=== PATIENT | female | born 1965 | race American Indian/Alaskan Native ===

== ENCOUNTER 2019-01-20 09:38 | Emergency (ER) | payer MEDICARE ==
[2019-01-20 09:58] VITALS: BP 114/78
[2019-01-20 10:52] LABS: Basophils % (Auto) 0.3 % (0.0-1.8); Eosinophils # (Auto) 0.1 K/mm3 (0.0-0.4); Hematocrit 42.2 % (30.3-42.9); Hemoglobin 13.6 gm/dl (10.1-14.3); Mean Corpuscular HGB Conc 32 % (30-34); Mean Corpuscular Volume 91 fl (79-97); Monocytes # (Auto) 0.4 K/mm3 (0.0-0.8); Monocytes % (Auto) 6.7 % (0.0-7.3); Platelet Count 164 K/mm3 (140-440); Red Blood Count 4.62 M/mm3 (3.65-5.03); Red Cell Distribution Width 14.1 % (13.2-15.2)
--- NOTE | 2019-01-20 11:00 | Emergency Department Report ---
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 Patient was brought in by family members for medication adjusted per family patient is reported to be a direct admit to geriatric unit. Tylenol reports the patient's been having odd behavior moments of staring. Family members report the patient seems to decline as her in inveg shot is due. Family member reports to her invega shot is every 4 weeks which is scheduled today. Family reports that she has not had her standard psych meds in the last 2 weeks. Onset/Timin -: week(s) Alledged Intoxication: No Compliant with Home Medications: Yes Home medications: Home Medications Medication Instructions Recorded Confirmed Last Taken ARIPiprazole [Abilify] 10 mg PO DAILY 12/15/14 12/15/14 12/14/14 Acetaminophen [Tylenol] 650 mg PO Q6HR PRN 12/15/14 12/15/14 Unknown Previous Rx's Medication Instructions Recorded Last Taken Type Hydrocortisone 1% [Hydrocortisone 1 applicatio TP TID #1 tube 02/25/15 Unknown Rx 1% CREAM] hydrOXYzine PAMOATE [Vistaril] 25 mg PO Q6HR PRN #14 capsule 02/25/15 Unknown Rx Albuterol Sulfate [Ventolin HFA] 2 puff IH Q4H PRN #1 hfa.aer.ad 05/05/15 Unknown Rx Ibuprofen [Motrin] 600 mg PO Q8H PRN #40 tablet 05/05/15 Unknown Rx Prednisone [predniSONE 5 mg (6-Day 5 mg PO .TAPER #1 tab.ds.pk 05/05/15 Unknown Rx Pack, 21 Tabs)] hydroCHLOROthiazide [HCTZ] 25 mg PO QDAY #30 tablet 05/05/15 Unknown Rx traMADol [Ultram] 50 mg PO Q6HR PRN #20 tablet 05/05/15 Unknown Rx Mupirocin [Bactroban 2% CREAM] 1 applicatio TP TID #1 cream 07/19/15 Unknown Rx Prednisone [predniSONE 10 mg 10 mg PO .TAPER #1 tab.ds.pk 07/19/15 Unknown Rx (6-Day Pack, 21 Tabs)] Sulfamethoxazole/Trimethoprim 1 each PO BID #20 tablet 07/19/15 Unknown Rx [Bactrim DS TAB] hydrOXYzine PAMOATE [Vistaril] 50 mg PO Q6HR PRN #30 capsule 07/19/15 Unknown Rx Fluconazole [Diflucan TAB] 150 mg PO QDAY #3 tablet 08/22/15 Unknown Rx HYDROcodone/APAP 5-325 [[place] 1 each PO Q6HR PRN #15 tablet 08/22/15 Unknown Rx 5/325] Sulfamethoxazole/Trimethoprim 1 each PO BID #20 tablet 08/22/15 Unknown Rx [Bactrim DS TAB] Tolnaftate [Tinactin] 150 gm TP BID #1 spray 08/22/15 Unknown Rx Allergies/Adverse reactions: Allergies Allergy/AdvReac Type Severity Reaction Status Date / Time aspirin Allergy Vomiting Verified 07/19/15 20:58 benztropine mesylate Allergy Unknown Verified 07/19/15 20:59 [From Cogentin] haloperidol [From Haldol] Allergy Swelling Verified 01/20/19 09:54 trazodone Allergy Unknown Verified 07/19/15 20:58 ziprasidone HCl [From Geodon] Allergy Unknown Verified 07/19/15 20:58 ziprasidone mesylate Allergy Unknown Verified 07/19/15 20:58 [From Geodon] ED Review of Systems ROS: Stated complaint: MEDICAL CLEARANCE Other details as noted in HPI Comment: All other systems reviewed and negative ED Past Medical Hx - Past Medical History Hx Hypertension: Yes Hx Arthritis: Yes (R/A) Hx Psychiatric Treatment: Yes (Depression,DEPRESSION) Additional medical history: Lupus to both eyes, high cholesterol - Surgical History Additional Surgical History: GLAUCOMA surgery - Social History Smoking Status: Never Smoker Substance Use Type: None - Medications Home Medications: Home Medications Medication Instructions Recorded Confirmed Last Taken Type ARIPiprazole [Abilify] 10 mg PO DAILY 12/15/14 12/15/14 12/14/14 History Acetaminophen [Tylenol] 650 mg PO Q6HR PRN 12/15/14 12/15/14 Unknown History Hydrocortisone 1% [Hydrocortisone 1 applicatio TP TID #1 tube 02/25/15 Unknown Rx 1% CREAM] hydrOXYzine PAMOATE [Vistaril] 25 mg PO Q6HR PRN #14 capsule 02/25/15 Unknown Rx Albuterol Sulfate [Ventolin HFA] 2 puff IH Q4H PRN #1 hfa.aer.ad 05/05/15 Unknown Rx Ibuprofen [Motrin] 600 mg PO Q8H PRN #40 tablet 05/05/15 Unknown Rx Prednisone [predniSONE 5 mg (6-Day 5 mg PO .TAPER #1 tab.ds.pk 05/05/15 Unknown Rx Pack, 21 Tabs)] hydroCHLOROthiazide [HCTZ] 25 mg PO QDAY #30 tablet 05/05/15 Unknown Rx traMADol [Ultram] 50 mg PO Q6HR PRN #20 tablet 05/05/15 Unknown Rx Mupirocin [Bactroban 2% CREAM] 1 applicatio TP TID #1 cream 07/19/15 Unknown Rx Prednisone [predniSONE 10 mg 10 mg PO .TAPER #1 tab.ds.pk 07/19/15 Unknown Rx (6-Day Pack, 21 Tabs)] Sulfamethoxazole/Trimethoprim 1 each PO BID #20 tablet 07/19/15 Unknown Rx [Bactrim DS TAB] hydrOXYzine PAMOATE [Vistaril] 50 mg PO Q6HR PRN #30 capsule 07/19/15 Unknown Rx Fluconazole [Diflucan TAB] 150 mg PO QDAY #3 tablet 08/22/15 Unknown Rx HYDROcodone/APAP 5-325 [[place] 1 each PO Q6HR PRN #15 tablet 08/22/15 Unknown Rx 5/325] Sulfamethoxazole/Trimethoprim 1 each PO BID #20 tablet 08/22/15 Unknown Rx [Bactrim DS TAB] Tolnaftate [Tinactin] 150 gm TP BID #1 spray 08/22/15 Unknown Rx ED Physical Exam - General Limitations: No Limitations General appearance: alert, in no apparent distress - Head Head exam: Present: atraumatic, normocephalic - Eye Eye exam: Present: normal appearance - ENT ENT exam: Present: mucous membranes moist - Neck Neck exam: Present: normal inspection - Respiratory Respiratory exam: Present: normal lung sounds bilaterally. Absent: respiratory distress - Cardiovascular Cardiovascular Exam: Present: regular rate, normal rhythm. Absent: systolic murmur, diastolic murmur, rubs, gallop - GI/Abdominal GI/Abdominal exam: Present: soft, normal bowel sounds - Extremities Exam Extremities exam: Present: normal inspection - Back Exam Back exam: Present: normal inspection - Neurological Exam Neurological exam: Present: alert, oriented X3 - Expanded Neurological Exam Expanded Cranial nerves: EOM's Intact: Normal, Gag Reflex: Normal, Tongue Deviation: Normal, Nystagmus: Normal, Facial Sensation: Normal, Facial Palsy with Forehead Movement: Normal, Facial Palsy without Forehead Movement: Normal Cerebellar function: Finger to Nose: Normal, Heel to [place]: Normal, [place]: Normal Upper motor neuron: [place] Neglect: Normal, Pronator Drift: Normal, Sensory E xtinction: Normal Sensory exam: Upper Extremity Light Touch: Normal, Upper Extremity Pin Prick: Normal, Upper Extremity Temperature: Normal, UE 2 Point Discrimination: Normal, Lower Extremity Light Touch: Normal, Lower Extremity Pin Prick: Normal, Lower Extremity Temperature: Normal, LE 2 Point Discrimination: Normal Motor strength exam: RUE: 4, LUE: 4, RLE: 4, LLE: 4 Best Eye Response ([place]): (4) open spontaneously Best Motor Response ([place]): (6) obeys commands Best Verbal Response ([place]): (5) oriented [place] Total: 15 - Psychiatric Psychiatric exam: Present: normal affect, normal mood - Skin Skin exam: Present: warm, dry, intact, normal color. Absent: rash ED Course Vital Signs 01/20/19 09:55 Temperature 97.8 F Pulse Rate 89 Respiratory 18 Rate Blood Pressure 114/78 O2 Sat by Pulse 98 Oximetry ED Medical Decision Making - Lab Data Result diagrams: 01/20/19 10:38 01/20/19 10:38 Laboratory Results - last 72 hr 01/20/19 01/20/19 01/20/19 10:38 10:38 10:38 WBC RBC Hgb Hct MCV MCH MCHC RDW Plt Count Lymph % (Auto) [place] % (Auto) Eos % (Auto) Baso % (Auto) Lymph # [place] # Eos # Baso # Seg Neutrophils % Seg Neutrophils # Sodium 145 Potassium 3.5 L Chloride 103.2 Carbon Dioxide 27 Anion Gap 18 BUN 25 H Creatinine 1.1 Estimated GFR > 60 BUN/Creatinine Ratio 23 Glucose 109 H Calcium 9.7 Urine Color Urine Turbidity Urine pH Ur Specific [place] Urine Protein Urine Glucose (UA) Urine Ketones Urine Blood Urine Nitrite Urine Bilirubin Urine Urobilinogen Ur Leukocyte Esterase Urine WBC (Auto) Urine RBC (Auto) U Epithel Cells (Auto) Urine Mucus Salicylates < 0.3 L Urine Opiates Screen Urine Methadone Screen Acetaminophen < 5.0 L Ur Barbiturates Screen Ur Phencyclidine Scrn Ur Amphetamines Screen U Benzodiazepines Scrn Urine Cocaine Screen U Marijuana (THC) Screen Drugs of Abuse Note Plasma/Serum Alcohol 01/20/19 01/20/19 01/20/19 10:38 10:38 Unknown WBC 6.2 RBC 4.62 Hgb 13.6 Hct 42.2 MCV 91 MCH 30 MCHC 32 RDW 14.1 Plt Count 164 Lymph % (Auto) 33.0 [place] % (Auto) 6.7 Eos % (Auto) 2.0 Baso % (Auto) 0.3 Lymph # 2.0 [place] # 0.4 Eos # 0.1 Baso # 0.0 Seg Neutrophils % 58.0 Seg Neutrophils # 3.6 Sodium Potassium Chloride Carbon Dioxide Anion Gap BUN Creatinine Estimated GFR BUN/Creatinine Ratio Glucose Calcium Urine Color Yellow Urine Turbidity Slightly-cloudy Urine pH 5.0 Ur Specific [place] 1.027 Urine Protein <15 mg/dl Urine Glucose (UA) Neg Urine Ketones Neg Urine Blood Neg Urine Nitrite Neg Urine Bilirubin Neg Urine Urobilinogen 2.0 Ur Leukocyte Esterase Neg Urine WBC (Auto) 6.0 Urine RBC (Auto) 4.0 U Epithel Cells (Auto) 14.0 H Urine Mucus 3+ Salicylates Urine Opiates Screen Urine Methadone Screen Acetaminophen Ur Barbiturates Screen Ur Phencyclidine Scrn Ur Amphetamines Screen U Benzodiazepines Scrn Urine Cocaine Screen U Marijuana (THC) Screen Drugs of Abuse Note Plasma/Serum Alcohol < 0.01 01/20/19 Unknown WBC RBC Hgb Hct MCV MCH MCHC RDW Plt Count Lymph % (Auto) [place] % (Auto) Eos % (Auto) Baso % (Auto) Lymph # [place] # Eos # Baso # Seg Neutrophils % Seg Neutrophils # Sodium Potassium Chloride Carbon Dioxide Anion Gap BUN Creatinine Estimated GFR BUN/Creatinine Ratio Glucose Calcium Urine Color Urine Turbidity Urine pH Ur Specific [place] Urine Protein Urine Glucose (UA) Urine Ketones Urine Blood Urine Nitrite Urine Bilirubin Urine Urobilinogen Ur Leukocyte Esterase Urine WBC (Auto) Urine RBC (Auto) U Epithel Cells (Auto) Urine Mucus Salicylates Urine Opiates Screen Presumptive negative Urine Methadone Screen Presumptive negative Acetaminophen Ur Barbiturates Screen Presumptive negative Ur Phencyclidine Scrn Presumptive negative Ur Amphetamines Screen Presumptive negative U Benzodiazepines Scrn Presumptive negative Urine Cocaine Screen Presumptive negative U Marijuana (THC) Screen Presumptive negative Drugs of Abuse Note Disclamer Plasma/Serum Alcohol - Medical Decision Making 53-year-old -[place] female with a past medical history of paranoid schizophrenia, depression, 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 Patient was brought in by family members for medication adjusted per family patient is reported to be a direct admit to geriatric psych unit. Family members reports the patient's been having odd behavior with moments of staring. Family members report the patient seems to de ascencio as her in invega shot is due. Family member reports her invega shot is every 4 weeks which is scheduled today. Family reports that she has not had her standard psych meds in the last 2 weeks. After evaluation in the emergency department for psychiatric disease, no findin gs exacerbating or causing this psychiatric complaint. The patient demonstrates no contributing medical instability or "conditions facilitating his psychiatric presentation". This patient is medically stable and appropriate for treatment and a psychiatric setting, i.e. Their behavioral disturbance is unlikely to be due to a medical condition was physical trauma, and their medical/surgical asim tment for any commodities conditions is within the capabilities of receiving facility. ED Disposition Clinical Impression: Depression, Paranoid schizophrenia Disposition: [id number] ANOTHER TYPE HLTHCARE Is pt being admited?: No Does the pt Need Aspirin: No Condition: Stable Instructions: Depression (ED)
[2019-01-20 11:06] LABS: Bilirubin,Urine NEG (Negative); Blood,Urine NEG (Negative); Color,Urine Yellow (Yellow); Mucus,Urine 3+ /HPF; Protein,Urine <15 mg/dL mg/dL (Negative)
[2019-01-20 11:07] LABS: Amphetamine Screen,Urine PRESUMPTIVE NEGATIVE; Benzodiazepines Screen,Urine PRESUMPTIVE NEGATIVE; Cannabinoid Screen,Urine PRESUMPTIVE NEGATIVE; Cocaine Screen,Urine PRESUMPTIVE NEGATIVE; Methadone Screen,Urine PRESUMPTIVE NEGATIVE; Opiate Screen,Urine PRESUMPTIVE NEGATIVE
[2019-01-20 11:15] LABS: BUN/Creatinine Ratio 23; Blood Urea Nitrogen 25 mg/dL (7-17); Calcium 9.7 mg/dL (8.4-10.2); Hemolysis Index 7
== END 2019-01-20 12:36 | disposition other institution (70) ==
LOC: ED 09:38
DX: F32.9 Major depressive disorder, single episode, unspecified (principal); F20.0 Paranoid schizophrenia; I10 Essential (primary) hypertension; E78.00 Pure hypercholesterolemia, unspecified; Z98.890 Other specified postprocedural states; Z79.899 Other long term (current) drug therapy; Z88.6 Allergy status to analgesic agent; Z88.8 Allergy status to other drugs, medicaments and biological substances
CPT/HCPCS: 36415; 80048; 80307; 80320; 81001; 85025; G0480